=== PATIENT | female | born 1975 | race Two or more races ===

== ENCOUNTER 2016-11-29 10:41 | Emergency (ER) | payer SELFPAY ==
[~2016-11-29] VITALS: Ht 165.1 cm; Wt 70.3 kg
[2016-11-29] MEDS ORDERED: ONDANSETRON PF 4 MG/2 ML VIAL. IV ONE (11:45)
[2016-11-29] MEDS ORDERED: IV NORMAL SALINE 1000ML BAG 1,000 ML IV ONE (11:45)
[2016-11-29] MEDS ORDERED: diphenhydrAMINE 50 MG/ML VIAL IVP ONE (11:45)
--- NOTE | 2016-11-29 11:52 | PHYS DOC ---
Past Medical History Past Medical History: No Pertinent History Past Medical History Benign positional vertigo Past Surgical History: Alcohol Use: None Drug Use: None Adult General Chief Complaint Chief Complaint: DIZZY/LIGHT HEADED HPI HPI Patient is a 41 year old female who presents with sudden onset of vertigo-like symptoms with associated nausea and vomiting onset this morning sudden severe consistent with prior episodes of vertigo that she's had over the years. She is out of her home medications which she says don't work anyways. Denies headache or blurry vision. Denies fever headache or stiff neck. Denies any difficulty speaking or swallowing. Evaluation done through a psychological tests sales agent. Review of Systems Review of Systems Constitutional: Denies fever or chills [] Eyes: Denies change in visual acuity, redness, or eye pain [] HENT: Denies nasal congestion or sore throat [] Respiratory: Denies cough or shortness of breath [] Cardiovascular: No additional information not addressed in HPI [] GI: Denies abdominal pain, nausea, vomiting, bloody stools or diarrhea [] : Denies dysuria or hematuria [] Musculoskeletal: Denies back pain or joint pain [] Integument: Denies rash or skin lesions [] Neurologic: Denies headache, focal weakness or sensory changes [] Endocrine: Denies polyuria or polydipsia [] Current Medications Current Medications Current Medications Medications (Trade) Dose Ordered Sig/Min Start Time Stop Time Status Last Admin Dose Admin Diphenhydramine HCl (Benadryl) 25 mg 1X ONCE 11/29/16 11:45 11/29/16 11:46 DC 11/29/16 11:57 25 MG Info (Do NOT chart on this entry -- for MONITORING) 1 each PRN DAILY PRN 11/29/16 12:30 11/29/16 14:40 DC Iohexol (Omnipaque 300 Mg/ml) 75 ml 1X ONCE 11/29/16 12:30 11/29/16 12:31 DC 11/29/16 12:40 75 ML Lorazepam (Ativan) 1 mg 1X ONCE 11/29/16 11:45 11/29/16 11:46 DC 11/29/16 11:57 1 MG Ondansetron HCl (Zofran) 4 mg 1X ONCE 11/29/16 11:45 11/29/16 11:46 DC 11/29/16 11:57 4 MG Sodium Chloride 1,000 ml @ 1,000 mls/hr 1X ONCE 11/29/16 11:45 11/29/16 12:44 DC 11/29/16 11:56 1,000 MLS/HR Allergies Allergies Allergies Coded Allergies Type Severity Reaction Last Updated Verified No Known Drug Allergies 11/10/13 No Physical Exam Physical Exam Constitutional: Well developed, well nourished, no acute distress, non-toxic appearance. [] HENT: Normocephalic, atraumatic, bilateral external ears normal, oropharynx moist, no oral exudates, nose normal. [] Eyes: PERRLA, EOMI, conjunctiva normal, no discharge. Horizontal nystagmus bilateral [] Neck: Normal range of motion, no tenderness, supple, no stridor. [] Cardiovascular:Heart rate regular rhythm, no murmur [] Lungs & Thorax: Bilateral breath sounds clear to auscultation [] Abdomen: Bowel sounds normal, soft, no tenderness, no masses, no pulsatile masses. [] Skin: Warm, dry, no erythema, no rash. [] Back: No tenderness, no CVA tenderness. [] Extremities: No tenderness, no cyanosis, no clubbing, ROM intact, no edema. [] Neurologic: Alert and oriented X 3, normal motor function, normal sensory function, no focal deficits noted. Cranial nerves II through XII grossly intact. Good finger to nose, good heal to euceda, normal coordination, no pronator drift. [] Psychologic: Affect normal, judgement normal, mood normal. [] Current Patient Data Vital Signs Vital Signs Date Time Temp Pulse Resp B/P (MAP) Pulse Ox O2 Delivery O2 Flow Rate FiO2 11/29/16 14:28 71 16 102/58 (73) 100 Room Air 11/29/16 11:14 98.0 98.0 Lab Values Laboratory Tests Test 11/29/16 12:04 POC Hemoglobin 13.9 g/dL (12-15) POC Hematocrit 41 % (36-40) H POC Sodium 141 mmol/L (135-145) POC Potassium 4.2 mmol/L (3.5-5.0) POC Chloride 106 mmol/L (98-110) POC Total CO2 25 mmol/L (23-32) Anion Gap 15 mmol/L (6-14) H POC Blood Urea Nitrogen 9 mg/dL (8-26) POC Creatinine 0.5 mg/dL (0.5-1.4) Glucose Level 100 mg/dL (70-99) H POC Ionized Calcium (Nona) 1.10 mmol/L (1.13-1.32) L Laboratory Tests 11/29/16 12:04 EKG EKG EKG normal sinus rhythm rate of 78 no STEMI QTC normal my interpretation [] Radiology/Procedures Radiology/Procedures CTA head and neck: [Negative for acute abnormality per radiology report] Course & Med Decision Making Course & Med Decision Making Pertinent Labs and Imaging studies reviewed. (See chart for details) We'll treat symptoms check basic labs and obtain a CTA head and neck to exclude posterior circulation issues and/or any lesions in the brain some as cysticercosis she is originally from [place] [CTA was unremarkable reexamination at 1:45 PM patient is improved and wants to go home.] Dragon Disclaimer Dragon Disclaimer This electronic medical record was generated, in whole or in part, using a voice recognition dictation system. Departure Departure Impression: Primary Impression: Benign positional vertigo Disposition: 01 HOME, SELF-CARE Referrals: NON,STAFF (PCP) Patient Instructions: Benign Positional Vertigo Additional Instructions: Please follow-up with your primary care physician. Scripts Lorazepam (ATIVAN) 1 Mg Tablet 1 MG PO BID for ANXIETY / AGITATION, #10 TAB MAY TAKE FOR SEVERE VERTIGO Prov: CORTNEY MORRIS MD 11/29/16 Meclizine Hcl (MECLIZINE HCL) 25 Mg Tablet 1 TAB PO TID Y for NAUSEA/VOMITING, #30 TAB Prov: CORTNEY MORRIS MD 11/29/16 CORTNEY MORRIS MD Nov 29, 2016 11:52
--- NOTE | 2016-11-29 12:03 | EKG ---
[facility] [address] [place] [address] Test Date: 2016-11-29 Test Time: 11:02:36 Pat Name: RYAN CABRERA Department: Room: Gender: F [employer] Supervisor: : [id number] Requested By: CORTNEY MORRIS Order Number: [id number] Reading MD: Karlie Montilla Measurements Intervals [place] Rate: 78 P: 62 MT: 140 QRS: 43 QRSD: 74 T: 9 QT: 368 QTc: 423 Interpretive Statements SINUS RHYTHM NORMAL EKG Electronically Signed On 12-01-2016 15:37:51 CDT by Karlie Montilla
[2016-11-29 12:16] LABS: POTASSIUM ISTAT 4.2 mmol/L (3.5-5.0)
[2016-11-29] MEDS ORDERED: CONTRAST GIVEN MC PRN (12:30)
[2016-11-29] MEDS ORDERED: IOHEXOL 300 MG/ML 75 ML VIAL IV ONE (12:30)
--- NOTE | 2016-11-29 13:44 | RAD ---
CT angiography head and neck 11/29/2016 at 1241 hours Indication: Dizziness, severe vertigo Comparison: None Technique: Multiple axial CT images of the head and neck were obtained after the administration of intravenous contrast. MIP images are provided. 3-D reconstructions of the [place] and neck vasculature are provided. 75 mL's of Omnipaque 300 was administered intravenously. Findings: Vascular findings: Normal 3 vessel arch is identified. No significant stenosis at the origin of the brachiocephalic vessels. Normal patent origins of the vertebral arteries. There is no atherosclerotic desiccation at the carotid bifurcations bilaterally. No significant stenosis is identified. The middle cerebral arteries and anterior cerebral arteries are normal in appearance. An anterior communicating artery is visualized. Bilateral A1 segments are present. Carotid terminus is normal. There is no significant stenosis or large vessel occlusion. Vertebral arteries are codominant. Basilar artery is normal. P1 segments of the posterior cerebral arteries are present and normal. Superior cerebellar arteries are normal. [place] is complete. No aneurysms or vascular malformations. Nonvascular findings: Ventricles, sulci and basal cisterns are normal for patient's age. There is no acute intracranial hemorrhage. There is no mass, mass effect or midline shift. Orbits are normal. Mastoid air cells and paranasal sinuses are well aerated. Soft tissues are normal. No pathologically enlarged cervical lymph nodes are present. Thyroid gland is normal. Visualized lung apices are normal without evidence for a suspicious nodule or pulmonary infiltrate. Impression: 1. Normal [place] without evidence for an aneurysm, high-grade stenosis or vascular malformation. 2. Carotid bifurcations are normal without stenosis.
[2016-11-29] MEDS ORDERED: LORA-434 PO (14:09)
[2016-11-29] MEDS ORDERED: MECL25TA3 PO (14:09)
[2016-11-29 14:28] VITALS: BP 102/58
== END 2016-11-29 14:30 | disposition home or self-care (01) ==
LOC: ER 10:41
DX: H81.13 Benign paroxysmal vertigo, bilateral (principal)
CPT/HCPCS: 70496; 70498; 80047; 93005; 96361; 96374; 96375; 99285; J1200; J2060; J2405; J7030; Q9967

== ENCOUNTER → 2019-04-12 | Outpatient (CLI) | payer OTHER ==
[~2019-04-12] MED LIST: CONTRAST GIVEN. MC PRN; IOHEXOL 300 MG/ML 100ML VIAL. IV ONE; LORA-434 PO; MECL25TA3 PO
--- NOTE | 2019-04-12 13:14 | RAD ---
PQRS Compliance statement: One or more of the following individualized dose reduction techniques were utilized for this examination: 1. Automated exposure control. 2. Adjustment of the mA and/or kV according to patient size. 3. Use of iterative reconstruction technique. INDICATION: Liver of left lobe of the liver. TECHNIQUE: CT of the abdomen without and with IV contrast with multiplanar reformats. COMPARISON: Previous exam from 11/10/2013. FINDINGS: Heart is normal in size. No pericardial or pleural effusion. Clear lung bases. Liver is normal in morphology. There is a 1.8 x 1.2 cm arterially enhancing lesion in the segment 2 of the liver not seen on previous exam. This lesion is not seen on portal venous and delayed phase images. Previously seen segment 8 liver lesion is not seen on current exam. Spleen is unenlarged and shows no focal lesion. No radiopaque gallstones. Pancreas and adrenals are within normal limits. Punctate nonobstructing right renal stone. No hydronephrosis or suspicious renal lesion. No retroperitoneal lymphadenopathy. Visualized bowel is within normal limits. No pneumoperitoneum. No suspicious bony lesion. IMPRESSION: 1. Segment 2 liver lesion as described above. Nonvisualization of previously seen segment 8 liver lesion. These are likely focal nodular hyperplasia or adenomas. Nonemergent MRI of the abdomen with IV contrast (Eovist) is recommended. 2. Punctate nonobstructing right renal stone. Electronically signed by: Germain Doyle DO (04/12/2019 1:11 PM) [id number]
== END | disposition home or self-care (01) ==
LOC: CT 08:41
PROVIDERS: ATTEND Family Medicine
DX: N20.0 Calculus of kidney (principal); K76.9 Liver disease, unspecified
CPT/HCPCS: 74170; Q9967

== ENCOUNTER → 2019-06-11 | Outpatient (CLI) | payer OTHER ==
[~2019-06-11] MED LIST changes: -CONTRAST GIVEN. MC PRN; +GADOTERATE 7.5 MMOL/15ML VIAL. IVP ONE; -IOHEXOL 300 MG/ML 100ML VIAL. IV ONE; +MECL-75 PO; -MECL25TA3 PO
--- NOTE | 2019-06-11 15:31 | RAD ---
MRI of the abdomen with and without contrast Clinical indications: Liver lesion seen on CT study dated April 12, 2019. COMPARISON: Abdomen CT study dated April 12, 2019.. Abdomen CT dated November 10, 2013. TECHNIQUE: Pre and postcontrast enhanced MRI sequences of the abdomen were performed. A total of 14 ml of Dotarem was given intravenously. FINDINGS: No restricted diffusion is seen within the liver. There is a small homogeneous enhancing lesion within segment 2 of the liver measuring 17 mm in greatest dimension. This is only seen on the initial arterial phase specifically series 11 and image 98. This is not as seen on delayed imaging. No lesion is seen here on T2-weighted imaging or precontrast T1-weighted imaging. No lesion is seen here on in phase or out of phase sequence. This is consistent with focal nodular hyperplasia. It is unchanged in size from the prior CT study April 12, 2019. The previously seen segment 8 lesion in 2013 is not evident by MRI. No other liver lesions are seen. The spleen is homogeneous and is not enlarged. The pancreas is normal. Both kidneys are normal without hydronephrosis. No focal aneurysmal dilatation of the abdominal aorta is seen. The gallbladder is normal and no extra hepatic biliary ductal dilatation is seen. No enlarged abdominal lymphadenopathy is evident. No ascites is seen. IMPRESSION: 17 mm focal nodular hyperplasia which is unchanged in size from April 12, 2019. No other abnormality. Electronically signed by: Kaleb Marques MD (06/11/2019 3:27 PM) [id number]
== END | disposition home or self-care (01) ==
LOC: MRI 09:12
PROVIDERS: ATTEND Family Medicine
DX: K76.89 Other specified diseases of liver (principal)
CPT/HCPCS: 74183; A9575